=== PATIENT | male | born 1960 | race Asian ===

== ENCOUNTER 2024-04-12 12:40 | Emergency (ER) | payer BC ==
[~2024-04-12] VITALS: Ht 170.2 cm; Wt 68.0 kg
[2024-04-12 12:40] VITALS: BP_SYST 139; PULSE 97; RESP 18; TEMP 98.7; O2SAT 97
[2024-04-12] MEDS: DIPHTH,PERTUSS(ACELL),TET VAC 0.5 ML VIAL (Tdap) I.M. ONE (13:35)
[2024-04-12] MEDS ORDERED: BACITRACIN 1 GM OINT TP ONE (13:36)
[2024-04-12] MEDS: BACITRACIN ZINC 15 GM TOPICAL OINTMENT TP SCH (13:38)
[2024-04-12 13:45] VITALS: BP_SYST 139; PULSE 88; RESP 16; TEMP 97.9; O2SAT 95
[2024-04-12] MEDS ORDERED: BACITRACIN ZINC 15 GM TOPICAL OINTMENT TP SCH (14:24)
== END 2024-04-12 14:45 | disposition home or self-care (01) ==
LOC: SED 12:40
DX: S01.01XA Laceration without foreign body of scalp, initial encounter (principal); Z23 Encounter for immunization; W18.39XA Other fall on same level, initial encounter; Y93.89 Activity, other specified; Y92.89 Other specified places as the place of occurrence of the external cause; Y99.8 Other external cause status
CPT/HCPCS: 90715; 99283